=== PATIENT | male | born 1950 | race Caucasian/White ===

== ENCOUNTER → 2020-12-12 | Outpatient (CLI) | payer MEDICARE ==
[2020-12-12 15:34] LABS: HCT (SEDRATE) 39.8 % (39.2-51.8)
[2020-12-12 15:35] LABS: BASOPHILS % (AUTO) 0 % (0-1); EOSINOPHILS % (AUTO) 0 % (1-7); LYMPHOCYTES % (AUTO) 7 % (22-44); MEAN CORPUSCULAR HEMOGLOBIN 30.7 pg (27.5-34.5); MEAN CORPUSCULAR HGB CONC 34.5 g/dL (33.2-36.2); MONOCYTES % (AUTO) 6 % (2-9); NEUTROPHILS % (AUTO) 86 % (42-75); PLATELET COUNT 434 x10^3/uL (130-400); RED CELL DISTRIBUTION WIDTH 14.2 % (9.4-14.8)
[2020-12-12 15:56] LABS: MD SCAN
== END | disposition home or self-care (01) ==
LOC: RAD 15:09
PROVIDERS: ATTEND Physician Assistant Surgical
DX: M89.8X5 Other specified disorders of bone, thigh (principal)
CPT/HCPCS: 36415; 85025; 85651; 86140

== ENCOUNTER 2020-12-28 17:08 | Inpatient (IN) | payer MEDICARE ==
[~2020-12-28] VITALS: Ht 175.3 cm; Wt 63.6 kg
[~2020-12-28 17:08] MED LIST: BISA10SU4 PR; CEFT1FRO2 IV; DOCU-131 PO; ENOX40SY4 SQ; HYDR-1067 PO; POLY17PO5 NG; TRAM50TA2 PO
[2020-12-28 18:47] VITALS: BP 130/74
[2020-12-28] MEDS ORDERED: ONDANSETRON 2MG/ML, 2ML IVPush PRN (19:30)
[2020-12-28] MEDS ORDERED: MELATONIN 5 MG TABLET PO PRN (19:30)
[2020-12-28] MEDS ORDERED: POLYETHYLENE GLYCOL 17 GM PACKET PO PRN (19:30)
[2020-12-28] MEDS ORDERED: hydrALAzine 20 MG/ML, 1ML IVPush PRN (19:30)
[2020-12-28] MEDS ORDERED: DIPHENHYDRAMINE 50 MG CAPSULE PO PRN (19:30)
[2020-12-28] MEDS ORDERED: morphine SULFATE 10 MG/ML, 1ML IVPush PRN (19:30)
[2020-12-28] MEDS ORDERED: BISACODYL 10 MG SUPP PR PRN (19:30)
[2020-12-28] MEDS: ACETAMINOPHEN 325 MG TABLET PO PRN (20:20)
[2020-12-29 00:13] VITALS: BP 115/67
[2020-12-29] MEDS: ACETAMINOPHEN 325 MG TABLET PO PRN ×4 (00:16→19:16)
[2020-12-29 04:52] LABS: BASOPHILS % (AUTO) 1 % (0-1); EOSINOPHILS % (AUTO) 5 % (1-7); LYMPHOCYTES % (AUTO) 22 % (22-44); MEAN CORPUSCULAR HEMOGLOBIN 30.3 pg (27.5-34.5); MEAN CORPUSCULAR HGB CONC 33.5 g/dL (33.2-36.2); MEAN PLATELET VOLUME 7.8 fL (7.4-10.4); MONOCYTES % (AUTO) 8 % (2-9); NEUTROPHILS % (AUTO) 64 % (42-75); PLATELET COUNT 342 x10^3/uL (130-400); RED BLOOD COUNT 3.04 x10^6/uL (4.38-5.82); RED CELL DISTRIBUTION WIDTH 14.6 % (9.4-14.8)
[2020-12-29 04:53] LABS: MD NO
[2020-12-29 05:02] LABS: ANION GAP 6 mmol/L (5-15); CALCIUM 8.4 mg/dL (8.5-10.1); CHLORIDE 106 mmol/L (98-107)
[2020-12-29 05:03] LABS: CREATININE 0.71 mg/dL (0.7-1.3)
[2020-12-29 07:21] VITALS: BP 112/68
[2020-12-29] MEDS: SENNA/DOCUSATE TABLET PO SCH (08:53)
[2020-12-29 13:52] VITALS: BP 106/63
[2020-12-29] MEDS: CEFAZOLIN 2,000 MG in SODIUM CHLORIDE 0.9% 50 ML IV SCH ×2 (14:05→22:16)
[2020-12-29 14:30] LABS: BASOPHILS % (AUTO) 2 % (0-1); EOSINOPHILS % (AUTO) 5 % (1-7); LYMPHOCYTES % (AUTO) 28 % (22-44); MEAN CORPUSCULAR HEMOGLOBIN 29.9 pg (27.5-34.5); MEAN PLATELET VOLUME 7.7 fL (7.4-10.4); MONOCYTES % (AUTO) 5 % (2-9); NEUTROPHILS % (AUTO) 60 % (42-75); PLATELET COUNT 358 x10^3/uL (130-400); RED BLOOD COUNT 3.13 x10^6/uL (4.38-5.82); RED CELL DISTRIBUTION WIDTH 14.7 % (9.4-14.8)
[2020-12-29 14:32] LABS: MD NO
[2020-12-29 14:35] LABS: ALBUMIN 2.1 g/dL (3.4-5.0); ANION GAP 9 mmol/L (5-15); CALCIUM 8.9 mg/dL (8.5-10.1); CHLORIDE 108 mmol/L (98-107)
[2020-12-29 14:40] LABS: ALANINE AMINOTRANSFERASE 64 U/L (12-78); ALKALINE PHOSPHATASE 209 U/L (45-117); BILIRUBIN,TOTAL 0.3 mg/dL (0.2-1.0); CREATININE 0.76 mg/dL (0.7-1.3)
[2020-12-29 18:28] VITALS: BP 117/67
[2020-12-30] MEDS: ACETAMINOPHEN 325 MG TABLET PO PRN ×4 (00:32→20:14)
[2020-12-30 01:16] VITALS: BP 118/74
[2020-12-30 05:50] LABS: BASOPHILS % (AUTO) 1 % (0-1); EOSINOPHILS % (AUTO) 5 % (1-7); LYMPHOCYTES % (AUTO) 22 % (22-44); MEAN CORPUSCULAR HEMOGLOBIN 30.7 pg (27.5-34.5); MEAN CORPUSCULAR HGB CONC 33.9 g/dL (33.2-36.2); MEAN PLATELET VOLUME 7.5 fL (7.4-10.4); MONOCYTES % (AUTO) 8 % (2-9); NEUTROPHILS % (AUTO) 65 % (42-75); PLATELET COUNT 344 x10^3/uL (130-400); RED BLOOD COUNT 3.17 x10^6/uL (4.38-5.82); RED CELL DISTRIBUTION WIDTH 14.4 % (9.4-14.8)
[2020-12-30 05:55] LABS: MD NO
[2020-12-30 06:01] LABS: ALANINE AMINOTRANSFERASE 54 U/L (12-78); ALBUMIN 2.2 g/dL (3.4-5.0); ANION GAP 5 mmol/L (5-15); CALCIUM 8.8 mg/dL (8.5-10.1); CHLORIDE 105 mmol/L (98-107); CREATININE 0.73 mg/dL (0.7-1.3)
[2020-12-30 06:04] LABS: ALKALINE PHOSPHATASE 202 U/L (45-117); BILIRUBIN,TOTAL 0.3 mg/dL (0.2-1.0); TOTAL PROTEIN 7.1 g/dL (6.4-8.2)
[2020-12-30] MEDS: CEFAZOLIN 2,000 MG in SODIUM CHLORIDE 0.9% 50 ML IV SCH ×2 (06:40→17:29)
[2020-12-30 07:35] VITALS: BP 119/72
[2020-12-30] MEDS: SENNA/DOCUSATE TABLET PO SCH ×2 (07:50→11:05)
[2020-12-30] MEDS ORDERED: MIDAZOLAM 1 MG/ML, 2ML ONE (08:20)
[2020-12-30] MEDS ORDERED: FENTANYL PF 100 MCG/2ML ONE ×2 (08:20→08:56)
[2020-12-30] MEDS ORDERED: ONDANSETRON 2MG/ML, 2ML ONE (08:23)
[2020-12-30] MEDS ORDERED: CEFAZOLIN 1,000 MG ONE (08:23)
[2020-12-30] MEDS ORDERED: PROPOFOL 10 MG/ML, 20ML ONE (08:23)
[2020-12-30] MEDS ORDERED: KETOROLAC 30 MG/1 ML ONE (08:23)
[2020-12-30] MEDS ORDERED: SUCCINYLCHOLINE 20 MG/ML, 10ML ONE (08:23)
[2020-12-30] MEDS ORDERED: LABETALOL 5MG/ML, 20ML IV PRN (09:00)
[2020-12-30] MEDS ORDERED: OXYcodone 5 MG/5 ML ORAL.SOL UDC PO PRN (09:00)
[2020-12-30] MEDS ORDERED: METOCLOPRAMIDE 5 MG/ML, 2ML IV PRN (09:00)
[2020-12-30] MEDS ORDERED: KETOROLAC 30 MG/1 ML IV PRN (09:00)
[2020-12-30] MEDS ORDERED: ONDANSETRON 2MG/ML, 2ML IVPush PRN (09:00)
[2020-12-30] MEDS ORDERED: HYDROmorphone 1 MG/ML, 1ML INJ IV PRN (09:00)
[2020-12-30] MEDS ORDERED: ALBUTEROL SULFATE 2.5 MG/3 ML NPPB PRN (09:00)
[2020-12-30] MEDS ORDERED: DIAZEPAM 5 MG/ML, 2ML IV PRN ×2 (09:00)
[2020-12-30] MEDS ORDERED: PROMETHAZINE 25 MG/ML, 1ML IV PRN (09:00)
[2020-12-30] MEDS ORDERED: FENTANYL PF 100 MCG/2ML IV PRN (09:00)
[2020-12-30] MEDS ORDERED: MEPERIDINE/PF 25MG/0.5ML IVPush PRN (09:00)
[2020-12-30] MEDS ORDERED: hydrALAzine 20 MG/ML, 1ML IV PRN (09:00)
[2020-12-30] MEDS ORDERED: OXYcodone 5 MG/5 ML ORAL.SOL UDC ONE (09:31)
[2020-12-30 13:41] VITALS: BP 110/69
[2020-12-30 18:37] VITALS: BP 110/67
[2020-12-31] MEDS: CEFAZOLIN 2,000 MG in SODIUM CHLORIDE 0.9% 50 ML IV SCH ×3 (00:44→16:50)
[2020-12-31 01:14] VITALS: BP 110/73
[2020-12-31] MEDS: ACETAMINOPHEN 325 MG TABLET PO PRN ×6 (01:26→22:06)
[2020-12-31 06:06] LABS: ANION GAP 8 mmol/L (5-15); BASOPHILS % (AUTO) 1 % (0-1); CALCIUM 8.6 mg/dL (8.5-10.1); CHLORIDE 104 mmol/L (98-107); EOSINOPHILS % (AUTO) 5 % (1-7); LYMPHOCYTES % (AUTO) 19 % (22-44); MEAN CORPUSCULAR HEMOGLOBIN 30.1 pg (27.5-34.5); MEAN CORPUSCULAR HGB CONC 33.4 g/dL (33.2-36.2); MEAN PLATELET VOLUME 8.3 fL (7.4-10.4); MONOCYTES % (AUTO) 6 % (2-9); NEUTROPHILS % (AUTO) 69 % (42-75); PLATELET COUNT 298 x10^3/uL (130-400); RED BLOOD COUNT 3.17 x10^6/uL (4.38-5.82); RED CELL DISTRIBUTION WIDTH 14.3 % (9.4-14.8)
[2020-12-31 06:07] LABS: CREATININE 0.71 mg/dL (0.7-1.3)
[2020-12-31 06:23] LABS: MD NO
[2020-12-31 07:04] VITALS: BP 121/74
[2020-12-31] MEDS: SENNA/DOCUSATE TABLET PO SCH (09:03)
[2020-12-31] MEDS: ENOXAPARIN 40 MG/0.4 ML SQ SCH (09:49)
[2020-12-31 14:45] VITALS: BP 115/70
[2020-12-31 19:00] VITALS: BP 118/70
[2021-01-01] MEDS: CEFAZOLIN 2,000 MG in SODIUM CHLORIDE 0.9% 50 ML IV SCH ×3 (00:55→17:08)
[2021-01-01 01:02] VITALS: BP 116/70
[2021-01-01] MEDS: ACETAMINOPHEN 325 MG TABLET PO PRN ×6 (02:03→23:26)
[2021-01-01 06:16] LABS: BASOPHILS % (AUTO) 1 % (0-1); EOSINOPHILS % (AUTO) 4 % (1-7); HCT (SEDRATE) 27.8 % (39.2-51.8); LYMPHOCYTES % (AUTO) 20 % (22-44); MEAN CORPUSCULAR HEMOGLOBIN 30.3 pg (27.5-34.5); MEAN CORPUSCULAR HGB CONC 33.5 g/dL (33.2-36.2); MONOCYTES % (AUTO) 8 % (2-9); NEUTROPHILS % (AUTO) 67 % (42-75); PLATELET COUNT 304 x10^3/uL (130-400); RED BLOOD COUNT 3.14 x10^6/uL (4.38-5.82); RED CELL DISTRIBUTION WIDTH 14.3 % (9.4-14.8)
[2021-01-01 06:21] LABS: ALANINE AMINOTRANSFERASE 31 U/L (12-78); ANION GAP 7 mmol/L (5-15); CALCIUM 8.3 mg/dL (8.5-10.1); CHLORIDE 106 mmol/L (98-107)
[2021-01-01 06:30] LABS: ALKALINE PHOSPHATASE 186 U/L (45-117); BILIRUBIN,TOTAL 0.2 mg/dL (0.2-1.0); CREATININE 0.66 mg/dL (0.7-1.3); TOTAL PROTEIN 6.9 g/dL (6.4-8.2)
[2021-01-01 06:37] VITALS: BP 109/68
[2021-01-01 06:38] LABS: MD NO
[2021-01-01] MEDS: ENOXAPARIN 40 MG/0.4 ML SQ SCH (09:02)
[2021-01-01] MEDS: SENNA/DOCUSATE TABLET PO SCH (09:02)
[2021-01-01 12:58] VITALS: BP 99/54
[2021-01-01 19:17] VITALS: BP 123/75
[2021-01-02] MEDS: CEFAZOLIN 2,000 MG in SODIUM CHLORIDE 0.9% 50 ML IV SCH ×2 (00:40→09:14)
[2021-01-02 00:44] VITALS: BP 108/73
[2021-01-02] MEDS: ACETAMINOPHEN 325 MG TABLET PO PRN ×3 (03:25→12:39)
[2021-01-02] MEDS: SENNA/DOCUSATE TABLET PO SCH (07:19)
[2021-01-02 08:00] VITALS: BP 116/72
[2021-01-02] MEDS: ENOXAPARIN 40 MG/0.4 ML SQ SCH (09:14)
[2021-01-02] MEDS ORDERED: CEFA2FRO IV (11:58)
[2021-01-02] MEDS ORDERED: TRAM50TA2 PO (11:58)
[2021-01-02 13:28] VITALS: BP 100/63
== END 2021-01-02 15:06 | DRG 501 ==
LOC: 4NE 18:06
PROVIDERS: ADMIT Family Medicine; ATTEND Internal Medicine
PROC: 0KBQ0ZZ Excision of Right Upper Leg Muscle, Open Approach (ICD-10-PCS; principal; 2020-12-30 09:00)
PROC: 02HV33Z Insertion of Infusion Device into Superior Vena Cava, Percutaneous Approach (ICD-10-PCS; 2021-01-02)
PROC: B548ZZA Ultrasonography of Superior Vena Cava, Guidance (ICD-10-PCS; 2021-01-02)
PROC: B5181ZA Fluoroscopy of Superior Vena Cava using Low Osmolar Contrast, Guidance (ICD-10-PCS; 2021-01-02)
DX: M60.051 Infective myositis, right thigh (principal); T81.30XA Disruption of wound, unspecified, initial encounter; L02.415 Cutaneous abscess of right lower limb; D63.8 Anemia in other chronic diseases classified elsewhere; Z82.49 Family history of ischemic heart disease and other diseases of the circulatory system; Z83.3 Family history of diabetes mellitus; Z87.891 Personal history of nicotine dependence; Z20.822 Contact with and (suspected) exposure to COVID-19
CPT/HCPCS: 36415; 36573; 80048; 80053; 83036; 85025; 85651; 86140; 87040; 87070; 87205; 87635; G0378; J0690; J1650; J1885; J2250; J2405; J2704; J3010; C1751; J0330